=== PATIENT | female | born 1960 | race Caucasian/White ===

== ENCOUNTER 2017-11-28 07:31 | Emergency (ER) | payer OTHER ==
[~2017-11-28] VITALS: Ht 172.7 cm; Wt 77.1 kg
[~2017-11-28 07:31] MED LIST: ALBU90OI INH; AZIT250 PO; BP MED; BUPR75 PO; Bactrim Ds Tab1 EACH PO; CEPH500 PO; CITA20 PO; CYCL10 PO; ERGO50000 PO; GABA400 PO; GABA600 PO; HYDACE7.5 PO; IBUP600 PO; INSULANI SC; LEVSOD100 PO; LEVSOD50 PO; LISI20 PO; METF500; METF500 PO; NITR100CA PO; ONDA4 PO; OXYACE5T PO; PHENA200 PO; PIOG15; PIOG30 PO; PROM25 PO; Pyridium200 MG PO; SULTRIDS PO; SULTRISS PO; ZOLP10 PO; ZYRTEC10 M1 PO
[2017-11-28 07:47] LABS: Source, Urine Clean Catch
[2017-11-28 07:50] LABS: Appearance, Urine Cloudy (Clear); Bilirubin, Urine Neg (Neg); Blood, Urine 5+ (Neg); Color, Urine Yellow (P-Yellow); Glucose Qualitative, Urine 4+ (Neg); Ketones, Urine Neg (Neg); Leukocyte Esterase, Urine 3+ (Neg); Nitrite, Urine Neg (Neg); Protein, Urine 2+ (Neg); Urobilinogen, Urine NORM (Normal)
[2017-11-28 08:00] LABS: Bacteria Many /hpf; Squamous Epithelial Cells Not Seen /hpf (Few); White Blood Cells, Urine TNTC /hpf (0-5)
[2017-11-28] MEDS ORDERED: Cefpodoxime Pr100 MG PO (08:29)
== END 2017-11-28 08:34 | disposition home or self-care (01) ==
LOC: ER 07:31
PROVIDERS: Internal Medicine
DX: N39.0 Urinary tract infection, site not specified (principal); E11.9 Type 2 diabetes mellitus without complications; I25.10 Atherosclerotic heart disease of native coronary artery without angina pectoris; Z87.891 Personal history of nicotine dependence; Z79.899 Other long term (current) drug therapy; Z79.84 Long term (current) use of oral hypoglycemic drugs
CPT/HCPCS: 81001; 87077; 87086; 87186; 99283